=== PATIENT | female | born 1990 | race Caucasian/White ===

== ENCOUNTER 2024-10-18 20:53 | Emergency (ER) | payer OTHER ==
[~2024-10-18] VITALS: Ht 162.6 cm; Wt 97.0 kg
[~2024-10-18 20:53] MED LIST: FLUOXETINE HCL40 MG PO; FOLIC ACID1 MG PO; PRENATAL TABLE1 EAC1 PO; PROGESTERONE100 MG PO; TRAMADOL HCL50 MG PO
--- OUTSIDE RECORDS SUMMARY | 2024-10-18 21:00 | XMS ---
PreManage Notification: LOURDES WRIGHT Security Supervisor Facepiece Line Events No recent Security Events currently on file CRITERIA MET - [facility] - 2 Visits in 30 Days CARE PROVIDERS -[facility] Dentist: Home Paraprofessional [facility] PHONE: [phone] -Loretta- Dentist: Home Paraprofessional [facility]ly [facility], [facility] PHONE: [phone] Tasneem Stubbs Nurse Practitioner: Family Current [facility] PHONE: Unknown Freya has no Care Guidelines for this patient. E.DRegina VISIT COUNT (12 MO.) 4 [facility] 1 SHEBA Saucedo Judith TOTAL 5 NOTE: Visits indicate total known visits. ED/UCC VISIT TRACKING (12 MO.) 10/18/2024 20:53 [facility] [place] TYPE: Emergency COMPLAINT: - NECK PAIN 10/17/2024 12:27 [facility] [place] TYPE: Emergency DIAGNOSES: - Essential (primary) hypertension - Radiculopathy, cervical region - NECK PAIN 10/03/2024 15:37 [facility] OR TYPE: Emergency DIAGNOSES: - Hypertensive urgency - Strain of muscle, fascia and tendon at neck level, initial encounter - high BP [facility] DIAGNOSES: - Muscle spasm of back - Other muscle spasm - NECK SHOULDER PAIN 09/29/2024 05:09 [facility] OR TYPE: Emergency DIAGNOSES: - Hypertensive urgency - Radiculopathy, cervical region - LEFT SHOULDER AND NECK PAIN INPATIENT VISIT TRACKING (12 MO.) No inpatient visits to display in this time frame [email or web address]
[2024-10-18] MEDS ORDERED: AMLODIPINE BESYL5 MG PO (21:07)
[2024-10-18] MEDS ORDERED: OXYCODONE-ACET1 EAC1 PO (21:07)
[2024-10-18] MEDS ORDERED: VENLAFAXINE HCL75 M1 PO (21:07)
[2024-10-18] MEDS ORDERED: CYCLOBENZAPRINE10 MG PO ×2 (21:08→22:40)
[2024-10-18] MEDS ORDERED: ZANAFLEX4 MG PO (21:08)
[2024-10-18] MEDS ORDERED: OXYCODONE/APAP 5/325 TAB PO ONE (21:45)
[2024-10-18] MEDS ORDERED: GABAPENTIN300 MG PO (22:40)
[2024-10-18] MEDS ORDERED: methylPREDNISolone 4 MG HOME.PACK PO ONE (22:45)
[2024-10-18] MEDS ORDERED: GABAPENTIN 100 MG CAP PO ONE (22:45)
[2024-10-18] MEDS ORDERED: CYCLOBENZAPRINE HCL 10 MG HOME.PACK PO ONE (22:45)
[2024-10-18 22:58] VITALS: BP 186/115
== END 2024-10-18 23:09 | disposition home or self-care (01) ==
LOC: ED 20:53
DX: M50.30 Other cervical disc degeneration, unspecified cervical region (principal); I10 Essential (primary) hypertension; F17.200 Nicotine dependence, unspecified, uncomplicated
CPT/HCPCS: 72125; 99284-25